=== PATIENT | female | born 1975 | race Hispanic/Latino ===

== ENCOUNTER 2020-04-16 09:04 | Emergency (ER) | payer MEDICAID ==
[2020-04-16 09:30] LABS: Basophils % (Auto) 0.6 % (0.0-1.8); Eosinophils # (Auto) 0.2 K/mm3 (0.0-0.4); Eosinophils % (Auto) 2.9 % (0.0-4.3); Hematocrit 37.1 % (30.3-42.9); Hemoglobin 12.4 gm/dl (10.1-14.3); Lymphocytes % (Auto) 14.2 % (13.4-35.0); Mean Corpuscular HGB Conc 34 % (30-34); Mean Corpuscular Volume 87 fl (79-97); Monocytes # (Auto) 0.6 K/mm3 (0.0-0.8); Platelet Count 219 K/mm3 (140-440); Red Blood Count 4.26 M/mm3 (3.65-5.03); Red Cell Distribution Width 15.8 % (13.2-15.2)
[2020-04-16 09:47] LABS: BUN/Creatinine Ratio 15; Blood Urea Nitrogen 12 mg/dL (7-17); Calcium 9.3 mg/dL (8.4-10.2); Hemolysis Index 4
[2020-04-16] MEDS ORDERED: ACETAMINOPHEN 325 MG TAB PO ONE (10:26)
[2020-04-16] MEDS ORDERED: IBUPROFEN 800 MG TAB PO ONE (10:26)
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
--- NOTE | 2020-04-16 11:22 | Cat Scan Report ---
CT OF THE ABDOMEN AND PELVIS WITHOUT CONTRAST INDICATION / CLINICAL INFORMATION: Abdominal pain with nausea, vomiting and diarrhea. TECHNIQUE: All CT scans at this location are performed using CT dose reduction for ALARA by means of automated e xposure control. COMPARISON: 05/30/2015. FINDINGS: ABDOMEN: The gallbladder is surgically absent. There is mild to moderate gaseous distention of an carolin ngated sigmoid colon without current evidence of volvulus. This is a new finding compared to the prio r exam. I see no evidence of bowel wall thickening or free air. The liver, spleen, bile ducts, pancre as, adrenal glands and kidneys are normal. No adenopathy is seen. There is mild bibasilar dependent a telectasis, greater on the right. PELVIS: The distal ureters and urinary bladder are normal. There is an IUD in the central uterus. The re is no evidence of adnexal mass or free fluid. A normal appendix is present and there is no evidenc e of diverticulitis. There is prior hernia repair in the periumbilical region with mild scarring. Mod erate spondylosis is present. A moderate compression fracture of the T12 vertebral body appears old. IMPRESSION: 1. Mild to moderate gaseous distention of an elongated sigmoid colon without current evidence of volv ulus. 2. No other significant abnormality is identified. Signer Name: George Burgess MD Signed: 04/16/2020 11:17 AM Workstation Name: [id number]
[2020-04-16] MEDS ORDERED: DICYCLOMINE 20 MG/2 ML INJ IM ONE (11:45)
[2020-04-16 12:30] LABS: Bacteria,Urine 1+ /HPF (Negative); Bilirubin,Urine NEG (Negative); Blood,Urine NEG (Negative); Color,Urine Yellow (Yellow); Mucus,Urine 2+ /HPF; Protein,Urine <15 mg/dL mg/dL (Negative); Urobilinogen,Urine < 2.0 mg/dL (<2.0)
[2020-04-16 12:36] LABS: Benzodiazepines Screen,Urine PRESUMPTIVE NEGATIVE; Cannabinoid Screen,Urine PRESUMPTIVE NEGATIVE; Cocaine Screen,Urine PRESUMPTIVE NEGATIVE; Methadone Screen,Urine PRESUMPTIVE NEGATIVE; Opiate Screen,Urine PRESUMPTIVE NEGATIVE
[2020-04-16 12:53] LABS: Amphetamine Screen,Urine PRESUMPTIVE POSITIVE
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
[2020-04-17 07:38] VITALS: BP 156/103
== END 2020-04-17 10:09 | disposition home or self-care (01) ==
LOC: ED 09:04
DX: R45.851 Suicidal ideations (principal); R14.1 Gas pain; I10 Essential (primary) hypertension; Z76.5 Malingerer [conscious simulation]; Z98.890 Other specified postprocedural states; Z90.710 Acquired absence of both cervix and uterus; Z79.899 Other long term (current) drug therapy
CPT/HCPCS: 36415; 74176; 80048; 80307; 81001; 84484; 85025; 93005; 96372; 99285; J0500; 80320; G0480

== ENCOUNTER 2022-05-12 20:15 | Emergency (ER) | payer MEDICAID ==
[2022-05-12 20:24] VITALS: BP 160/75
--- NOTE | 2022-05-12 22:16 | XRay Report ---
Right knee, 3 views HISTORY: Injury COMPARISON: None FINDINGS: Ossific densities along the medial surface of the medial tibial plateau may reflect age-ind eterminate avulsion fractures (reverse Segond fracture) or could be degenerative. Recommend correlati on with focal point tenderness. Otherwise, no acute osseous findings. Remote fracture deformity of th e right proximal fibula. No joint effusion. Signer Name: Juan Montelongo MD Signed: 05/12/2022 10:11 PM Workstation Name: [id number]
--- NOTE | 2022-05-13 08:57 | Emergency Department Report ---
ED General Adult HPI - General Chief complaint: Extremity Injury, Lower Stated complaint: BACK PAIN/RT KNEE PAIN PUI?: No Time Seen by Provider: 05/13/22 07:54 Source: patient Mode of arrival: Ambulatory Limitations: No Limitations - History of Present Illness Initial comments: Patient is a 46-year-old female that has been in the ER all night. She was initially seen by the night provider but she changed her complaints so many times that she remains here at shift change. She is complaining to me that she has not urinated in 2 weeks. Then when I questioned her further she said it was 2 days ago. She has been in the ER 5 hours waiting for UA specimen. I told her that we would not need to catheter she did not void. She then was able to void. She had also complained of knee pain. She denies any fall. She states that she twisted it the other day. Denies falling. Patient is ambulatory. -: Gradual Associated Symptoms: denies other symptoms. denies: confusion, chest pain, cough, diaphoresis, fever/chills, headaches, loss of appetite, malaise, nausea/vomiting, rash, shortness of breath, syncope, weakness Treatments Prior to Arrival: none - Related Data Home Medications Medication Instructions Recorded Confirmed Last Taken Sertraline [Zoloft] 100 mg PO QDAY 05/30/15 04/16/20 05/29/15 Trazodone HCl [traZODone] 150 mg PO DAILY 05/30/15 04/16/20 1 Day Ago ~04/15/20 clonazePAM 1 mg PO DAILY 05/30/15 04/16/20 1 Day Ago ~04/15/20 risperiDONE 1 mg PO QDAY 05/30/15 04/16/20 1 Day Ago ~04/15/20 risperiDONE [RisperDAL] 2 mg PO HS 05/30/15 04/16/20 1 Day Ago ~04/15/20 Previous Rx's Medication Instructions Recorded Last Taken Type Sulfamethoxazole/Trimethoprim 1 each PO BID #10 tablet 05/13/22 Unknown Rx [Bactrim DS TAB] Allergies Allergy/AdvReac Type Severity Reaction Status Date / Time No Known Allergies Allergy Verified 04/17/20 12:39 ED Review of Systems ROS: Stated complaint: BACK PAIN/RT KNEE PAIN Other details as noted in HPI Comment: All other systems reviewed and negative ED Past Medical Hx - Past Medical History Previous Medical History?: Yes Hx Hypertension: Yes Hx Heart Attack/AMI: No Hx Congestive Heart Failure: No Hx Diabetes: No Hx Deep Vein Thrombosis: No Hx Psychiatric Treatment: Yes (schizophrenia) Hx Asthma: No Hx COPD: No - Surgical History Past Surgical History?: Yes Hx Coronary Stent: No Hx Pacemaker: No Hx Internal Defibrillator: No Additional Surgical History: right ankle, hysterectomy - Family History Family history: no significant - Social History Smoking Status: Never Smoker Substance Use Type: None - Medications Home Medications: Home Medications Medication Instructions Recorded Confirmed Last Taken Type Sertraline [Zoloft] 100 mg PO QDAY 05/30/15 04/16/20 05/29/15 History Trazodone HCl [traZODone] 150 mg PO DAILY 05/30/15 04/16/20 1 Day Ago History ~04/15/20 clonazePAM 1 mg PO DAILY 05/30/15 04/16/20 1 Day Ago History ~04/15/20 risperiDONE 1 mg PO QDAY 05/30/15 04/16/20 1 Day Ago History ~04/15/20 risperiDONE [RisperDAL] 2 mg PO HS 05/30/15 04/16/20 1 Day Ago History ~04/15/20 Sulfamethoxazole/Trimethoprim 1 each PO BID #10 tablet 05/13/22 Unknown Rx [Bactrim DS TAB] ED Physical Exam - General Limitations: No Limitations General appearance: alert, in no apparent distress - Head Head exam: Present: atraumatic, normocephalic - Eye Eye exam: Present: normal appearance - ENT ENT exam: Present: mucous membranes moist - Neck Neck exam: Present: normal inspection - Respiratory Respiratory exam: Present: normal lung sounds bilaterally. Absent: respiratory distress - Cardiovascular Cardiovascular Exam: Present: regular rate, normal rhythm. Absent: systolic murmur, diastolic murmur, rubs, gallop - GI/Abdominal GI/Abdominal exam: Present: soft, normal bowel sounds - Extremities Exam Extremities exam: Present: normal inspection - Back Exam Back exam: Present: normal inspection - Neurological Exam Neurological exam: Present: alert, oriented X3 - Psychiatric Psychiatric exam: Present: normal affect, normal mood - Skin Skin exam: Present: warm, dry, intact, normal color. Absent: rash ED Course Vital Signs 05/12/22 20:23 Temperature 98.4 F Pulse Rate 61 Respiratory 18 Rate Blood Pressure 160/75 O2 Sat by Pulse 95 Oximetry ED Medical Decision Making - Lab Data Result diagrams: 05/13/22 09:53 05/13/22 09:53 - Radiology Data Radiology results: report reviewed, image reviewed No acute process - Medical Decision Making Lab Results 05/13/22 05/13/22 05/13/22 Range/Units 09:53 09:53 11:11 WBC 5.8 (4.5-11.0) K/mm3 RBC 4.16 (3.65-5.03) M/mm3 Hgb 12.4 (10.1-14.3) gm/dl Hct 36.3 (30.3-42.9) % MCV 87 (79-97) fl MCH 30 (28-32) pg MCHC 34 (30-34) % RDW 16.0 H (13.2-15.2) % Plt Count 173 (140-440) K/mm3 Sodium 143 (137-145) mmol/L Potassium 3.7 (3.6-5.0) mmol/L Chloride 104.7 (98-107) mmol/L Carbon Dioxide 25 (22-30) mmol/L Anion Gap 17 mmol/L BUN 9 (7-17) mg/dL Creatinine 0.6 (0.6-1.2) mg/dL Estimated GFR > 60 ml/min BUN/Creatinine Ratio 15 % Glucose 97 (65-100) mg/dL Calcium 9.3 (8.4-10.2) mg/dL Urine Color Yellow (Yellow) Urine Turbidity Clear (Clear) Urine pH 5.0 (5.0-7.0) Ur Specific [place] 1.023 (1.003-1.030) Urine Protein <15 mg/dl (Negative) mg/dL Urine Glucose (UA) Neg (Negative) mg/dL Urine Ketones Neg (Negative) mg/dL Urine Blood Neg (Negative) Urine Nitrite Neg (Negative) Urine Bilirubin Neg (Negative) Urine Urobilinogen < 2.0 (<2.0) mg/dL Ur Leukocyte Esterase Tr (Negative) Urine WBC (Auto) 4.0 (0.0-6.0) /HPF Urine RBC (Auto) 1.0 (0.0-6.0) /HPF U Epithel Cells (Auto) 3.0 (0-13.0) /HPF Urine Bacteria (Auto) 1+ (Negative) /HPF Urine Mucus 2+ /HPF Vital Signs 05/12/22 20:23 Temperature 98.4 F Pulse Rate 61 Respiratory 18 Rate Blood Pressure 160/75 O2 Sat by Pulse 95 Oximetry X-ray noted. Given patient's complaint of dysuria. I have treated her trace leukocytes and 4 WBCs. I do not think that she is actually had urinary retention. Upon probing I think that she is having some dysuria. Patient lives in a senior care house locally. On discharge exam she is ambulatory, not ill nontoxic and taking p.o. Patient being discharged home with discharge plan of care including diet, activity, medications and follow-up. She verbalizes understanding of plan of care. - Differential Diagnosis Rule out UTI, hydro-, kidney stone Critical care attestation.: If time is entered above; I have spent that time in minutes in the direct care of this critically ill patient, excluding procedure time. ED Disposition Clinical Impression: Knee pain UTI (urinary tract infection) Qualifiers: Urinary tract infection type: site unspecified Hematuria presence: without hematuria Qualified Code(s): N39.0 - Urinary tract infection, site not specified Disposition: HOME / SELF CARE / HOMELESS Is pt being admited?: No Does the pt Need Aspirin: No Condition: Stable Instructions: Urinary Tract Infection, Adult, [id number] Additional Instructions: Medications as ordered today until gone. Then follow-up with your primary care to make sure this is gone away. I have given you referral below. Drink a lot of water. Motrin or Tylenol can be used for pain. Prescriptions: Sulfamethoxazole/Trimethoprim [Bactrim DS TAB] 1 each PO BID #10 tablet Referrals: ASHTYN DEL ANGEL MD [Primary Care Provider] - 3-5 Days JT GRIMM MD [Staff Physician] - 3-5 Days Time of Disposition: 12:03
[2022-05-13 10:31] LABS: Hematocrit 36.3 % (30.3-42.9); Hemoglobin 12.4 gm/dl (10.1-14.3); Mean Corpuscular HGB Conc 34 % (30-34); Mean Corpuscular Volume 87 fl (79-97); Platelet Count 173 K/mm3 (140-440); Red Blood Count 4.16 M/mm3 (3.65-5.03)
[2022-05-13 10:54] LABS: Blood Urea Nitrogen 9 mg/dL (7-17); Calcium 9.3 mg/dL (8.4-10.2); Hemolysis Index 3
[2022-05-13 11:10] LABS: BUN/Creatinine Ratio 15
[2022-05-13 11:32] LABS: Bilirubin,Urine NEG (Negative); Blood,Urine NEG (Negative); Color,Urine Yellow (Yellow); Protein,Urine <15 mg/dL mg/dL (Negative); Urobilinogen,Urine < 2.0 mg/dL (<2.0)
[2022-05-13 11:42] LABS: Bacteria,Urine 1+ /HPF (Negative); Mucus,Urine 2+ /HPF
== END 2022-05-13 17:58 | disposition home or self-care (01) ==
LOC: ED 20:15
DX: M25.569 Pain in unspecified knee (principal); N39.0 Urinary tract infection, site not specified; I10 Essential (primary) hypertension
CPT/HCPCS: 36415; 80048; 81001; 85027; 99283

== ENCOUNTER 2022-05-30 13:28 | Emergency (ER) | payer MEDICAID ==
[2022-05-30 14:13] VITALS: BP 151/77
== END 2022-05-31 04:15 | disposition left against medical advice (07) ==
LOC: ED 13:28
DX: T25.029A Burn of unspecified degree of unspecified foot, initial encounter (principal); Z53.21 Procedure and treatment not carried out due to patient leaving prior to being seen by health care provider; X08.8XXA Exposure to other specified smoke, fire and flames, initial encounter; Y93.89 Activity, other specified; Y92.89 Other specified places as the place of occurrence of the external cause; Y99.8 Other external cause status

== ENCOUNTER 2022-07-05 13:31 | Emergency (ER) | payer MEDICAID ==
[2022-07-05 17:15] LABS: Amphetamine Screen,Urine Negative; Benzodiazepines Screen,Urine Negative; Cannabinoid Screen,Urine Negative; Cocaine Screen,Urine Negative; Methadone Screen,Urine Negative; Opiate Screen,Urine Negative
[2022-07-05 17:17] LABS: Bacteria,Urine 1+ /HPF (Negative); Mucus,Urine FEW /HPF
[2022-07-05 17:35] LABS: Color,Urine Yellow (Yellow)
--- NOTE | 2022-07-05 18:20 | Emergency Department Report ---
ED General Adult HPI - General Chief complaint: Psych Stated complaint: PSYCH/ SI Time Seen by Provider: 07/05/22 17:05 Source: patient Mode of arrival: Ambulatory Limitations: No Limitations - History of Present Illness Initial comments: Patient presents to the emergency department the chief complaint of suicidal ideations. Patient states that she has been more depressed over the last week or so and states that she would kill herself by cutting her wrist. Patient has a prior attempt via hanging. She denies auditory or visual hallucinations -: Gradual Severity scale (0 -10): 0 Consistency: constant Improves with: none Worsens with: none Associated Symptoms: denies other symptoms Treatments Prior to Arrival: none - Related Data Home Medications Medication Instructions Recorded Confirmed Last Taken Sertraline [Zoloft] 100 mg PO QDAY 05/30/15 04/16/20 05/29/15 Trazodone HCl [traZODone] 150 mg PO DAILY 05/30/15 04/16/20 1 Day Ago ~04/15/20 clonazePAM 1 mg PO DAILY 05/30/15 04/16/20 1 Day Ago ~04/15/20 risperiDONE 1 mg PO QDAY 05/30/15 04/16/20 1 Day Ago ~04/15/20 risperiDONE [RisperDAL] 2 mg PO HS 05/30/15 04/16/20 1 Day Ago ~04/15/20 Previous Rx's Medication Instructions Recorded Last Taken Type Sulfamethoxazole/Trimethoprim 1 each PO BID #10 tablet 05/13/22 Unknown Rx [Bactrim DS TAB] Allergies Allergy/AdvReac Type Severity Reaction Status Date / Time No Known Allergies Allergy Verified 04/17/20 12:39 ED Review of Systems ROS: Stated complaint: PSYCH/ SI Other details as noted in HPI Comment: All other systems reviewed and negative Constitutional: denies: chills, fever Eyes: denies: eye pain, eye discharge, vision change ENT: denies: ear pain, throat pain Respiratory: denies: cough, shortness of breath, wheezing Cardiovascular: denies: chest pain, palpitations Endocrine: no symptoms reported Gastrointestinal: denies: abdominal pain, nausea, diarrhea Genitourinary: denies: urgency, dysuria, discharge Musculoskeletal: denies: back pain, joint swelling, arthralgia Skin: denies: rash, lesions Neurological: denies: headache, weakness, paresthesias Psychiatric: suicidal thoughts. denies: anxiety, depression, auditory hallucinations, visual hallucinations, homicidal thoughts Hematological/Lymphatic: denies: easy bleeding, easy bruising ED Past Medical Hx - Past Medical History Hx Hypertension: Yes Hx Heart Attack/AMI: No Hx Congestive Heart Failure: No Hx Diabetes: No Hx Deep Vein Thrombosis: No Hx Psychiatric Treatment: Yes (schizophrenia) Hx Asthma: No Hx COPD: No - Surgical History Hx Coronary Stent: No Hx Pacemaker: No Hx Internal Defibrillator: No Additional Surgical History: right ankle, hysterectomy - Social History Smoking Status: Never Smoker Substance Use Type: None - Medications Home Medications: Home Medications Medication Instructions Recorded Confirmed Last Taken Type Sertraline [Zoloft] 100 mg PO QDAY 05/30/15 04/16/20 05/29/15 History Trazodone HCl [traZODone] 150 mg PO DAILY 05/30/15 04/16/20 1 Day Ago History ~04/15/20 clonazePAM 1 mg PO DAILY 05/30/15 04/16/20 1 Day Ago History ~04/15/20 risperiDONE 1 mg PO QDAY 05/30/15 04/16/20 1 Day Ago History ~04/15/20 risperiDONE [RisperDAL] 2 mg PO HS 05/30/15 04/16/20 1 Day Ago History ~04/15/20 Sulfamethoxazole/Trimethoprim 1 each PO BID #10 tablet 05/13/22 Unknown Rx [Bactrim DS TAB] ED Physical Exam - General Limitations: No Limitations General appearance: alert, in no apparent distress - Head Head exam: Present: atraumatic, normocephalic - Eye Eye exam: Present: normal appearance, PERRL, EOMI - ENT ENT exam: Present: mucous membranes moist - Neck Neck exam: Present: normal inspection - Respiratory Respiratory exam: Present: normal lung sounds bilaterally. Absent: respiratory distress - Cardiovascular Cardiovascular Exam: Present: regular rate, normal rhythm. Absent: systolic murmur, diastolic murmur, rubs, gallop - GI/Abdominal GI/Abdominal exam: Present: soft, normal bowel sounds. Absent: distended, tenderness - Extremities Exam Extremities exam: Present: normal inspection - Back Exam Back exam: Present: normal inspection - Neurological Exam Neurological exam: Present: alert, oriented X3, CN II-XII intact. Absent: motor sensory deficit - Psychiatric Psychiatric exam: Present: depressed, suicidal ideation. Absent: normal affect, normal mood - Skin Skin exam: Present: warm, dry, intact, normal color. Absent: rash ED Course Vital Signs 07/05/22 13:39 Temperature 98.8 F Pulse Rate 72 Respiratory 14 Rate Blood Pressure 157/88 [Right] O2 Sat by Pulse 97 Oximetry ED Medical Decision Making - Lab Data Result diagrams: 07/05/22 18:01 Lab Results 07/05/22 07/05/22 07/05/22 Range/Units 16:34 16:34 18:01 WBC 5.3 (4.5-11.0) K/mm3 RBC 4.02 (3.65-5.03) M/mm3 Hgb 11.7 (10.1-14.3) gm/dl Hct 35.4 (30.3-42.9) % MCV 88 (79-97) fl MCH 29 (28-32) pg MCHC 33 (30-34) % RDW 14.7 (13.2-15.2) % Plt Count 214 (140-440) K/mm3 Lymph % (Auto) 15.8 (13.4-35.0) % [place] % (Auto) 6.4 (0.0-7.3) % Eos % (Auto) 2.1 (0.0-4.3) % Baso % (Auto) 0.7 (0.0-1.8) % Lymph # (Auto) 0.8 L (1.2-5.4) K/mm3 [place] # (Auto) 0.3 (0.0-0.8) K/mm3 Eos # (Auto) 0.1 (0.0-0.4) K/mm3 Baso # (Auto) 0.0 (0.0-0.1) K/mm3 Seg Neutrophils % 75.0 H (40.0-70.0) % Seg Neutrophils # 4.0 (1.8-7.7) K/mm3 Urine Color Yellow (Yellow) Urine Turbidity Clear (Clear) Specific [place] (Man) 1.030 (1.003-1.030) Ur Protein (Man) 3+ (Negative) mg/dL Ur Ketones (Man) 4+ (Negative) Urine Bilirubin (Man) Negative (Negative) Urine WBC (Auto) 22.0 H (0.0-6.0) /HPF Urine RBC (Auto) 1.0 (0.0-6.0) /HPF U Epithel Cells (Auto) 14.0 H (0-13.0) /HPF Urine Bacteria (Auto) 1+ (Negative) /HPF Urine RBC (Manual) Negative (Negative) Urine Mucus Few /HPF Urine Opiates Screen Negative Urine Methadone Screen Negative Ur Barbiturates Screen Negative Ur Phencyclidine Scrn Negative Ur Amphetamines Screen Negative U Benzodiazepines Scrn Negative Urine Cocaine Screen Negative U Marijuana (THC) Screen Negative Drugs of Abuse Note Disclamer - Medical Decision Making 1013 placed ED hold placed Mental health evaluation ordered Medical clearance is still pending Awaiting mental health evaluation and placement Urinalysis has significant epithelial cells and is not consistent with a UTI. Critical care attestation.: If time is entered above; I have spent that time in minutes in the direct care of this critically ill patient, excluding procedure time. ED Disposition Clinical Impression: Suicidal ideation Disposition: [address] [place] [address] Is pt being admited?: No Does the pt Need Aspirin: No Condition: Stable
[2022-07-05 18:49] LABS: Basophils % (Auto) 0.7 % (0.0-1.8); Eosinophils # (Auto) 0.1 K/mm3 (0.0-0.4); Eosinophils % (Auto) 2.1 % (0.0-4.3); Hematocrit 35.4 % (30.3-42.9); Hemoglobin 11.7 gm/dl (10.1-14.3); Lymphocytes # (Auto) 0.8 K/mm3 (1.2-5.4); Lymphocytes % (Auto) 15.8 % (13.4-35.0); Mean Corpuscular HGB Conc 33 % (30-34); Mean Corpuscular Volume 88 fl (79-97); Monocytes # (Auto) 0.3 K/mm3 (0.0-0.8); Monocytes % (Auto) 6.4 % (0.0-7.3); Platelet Count 214 K/mm3 (140-440); Red Blood Count 4.02 M/mm3 (3.65-5.03); Red Cell Distribution Width 14.7 % (13.2-15.2)
[2022-07-05 19:08] LABS: Alanine Aminotransferase 13 units/L (7-56); Albumin 3.8 g/dL (3.9-5); BUN/Creatinine Ratio 18; Blood Urea Nitrogen 11 mg/dL (7-17); Calcium 9.1 mg/dL (8.4-10.2); Hemolysis Index 11
--- NOTE | 2022-07-06 06:24 | Event Note ---
Psych Obs next day Ms. Mack is a 46-year-old female who initially presented to the emergency department yesterday with complaint of suicidal ideations and auditory hallucinations telling her to cut her wrist and hang herself. Laboratory work- up is essentially unremarkable. Patient is awaiting mental health assessment that would likely take place later today. This morning she still endorses auditory hallucinations and suicidal ideations. No significant events occurred overnight. Review of systems Constitutional: No fever, chills, weight loss Eyes: No changes in vision, photophobia, ocular pain Cardiovascular: No chest pain, palpitations, edema Respiratory: No dyspnea, cough Gastrointestinal: No nausea, vomiting, diarrhea, abdominal pain Genitourinary: No dysuria, hematuria, polyuria Musculoskeletal: No arthralgia, myalgia Integumentary: No rashes, lesions or change in color Neurological: No focal weakness, headache or numbness Psychiatric: As per HPI General: Alert and oriented x3, no acute distress Head: Normocephalic, atraumatic Neck: Supple, nontender, no JVD, FROM Cardiac: Regular rate, regular rhythm, no murmurs, gallops or rubs Respiratory: Clear to auscultation bilaterally, no wheezes, rales, normal work of breathing Abdomen: Soft, nontender, nondistended, normal bowel sounds Skin: Warm, dry, intact, appropriate for ethnicity, no rashes or lesions Neurological: Cranial nerves II through XII grossly intact Psych: Positive for suicidal ideation, auditory hallucinations
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
[2022-07-06] MEDS ORDERED: CLONAZEPAM 1 MG PO SCH (10:15)
[2022-07-06] MEDS ORDERED: SERTRALINE 100 MG TAB PO SCH (11:00)
[2022-07-06] MEDS ORDERED: risperiDONE 1 MG TAB PO SCH (11:00)
[2022-07-06 11:10] VITALS: BP 137/57
[2022-07-06] MEDS ORDERED: ALBUTEROL 2.5 MG/3 ML NEBU IH ONE (11:33)
[2022-07-06] MEDS ORDERED: IPRATROPIUM 0.02% NEBU 2.5 ML IH ONE (11:33)
[2022-07-06] MEDS ORDERED: DIVALPROEX DR 500 MG TAB PO SCH (22:00)
[2022-07-06] MEDS ORDERED: traZODone 50 MG TAB PO SCH (22:00)
[2022-07-06] MEDS ORDERED: NON-FORMULARY EACH (Risperidone [Risperdal] 2 MG Tablet) PO SCH (22:00)
[2022-07-06] MEDS ORDERED: TRAZODONE HCL 150 MG PO SCH (22:00)
[2022-07-06] MEDS ORDERED: traZODone 100 MG TAB PO SCH (22:00)
[2022-07-06] MEDS ORDERED: BENZTROPINE 1 MG TAB PO SCH (22:00)
== END 2022-07-06 13:22 ==
LOC: ED 13:31 → EEVIPCON 13:31 → ED 07-06 13:22
DX: R45.851 Suicidal ideations (principal); I10 Essential (primary) hypertension; F32.A Depression, unspecified; Z20.822 Contact with and (suspected) exposure to COVID-19
CPT/HCPCS: 36415; 80053; 80307; 81001; 84443; 84703; 85025; 87086; 99285; U0003; 80320; G0480